=== PATIENT | female | born 1935 | race Caucasian/White ===

== ENCOUNTER 2017-01-22 14:19 | Emergency (ER) | payer MEDICAID, OTHER ==
[~2017-01-22] VITALS: Ht 154.9 cm; Wt 53.5 kg
[~2017-01-22 14:19] MED LIST: AMLO5TAB4 PO; ASPI81TA3 PO; DOCU-144 PO; GABA100C14 PO; LISI10TA2 PO; SPIR25TA PO; TRAM-40 PO
[2017-01-22 14:36] VITALS: Ht 154.9 cm; Wt 53.5 kg
[2017-01-22] MEDS ORDERED: PANT40TA4 PO (17:06)
[2017-01-22] MEDS ORDERED: CYAN-2 SL (17:08)
[2017-01-22 17:23] LABS: BASOPHIL # 0.1 10^3/ul (0.0-0.1); BASOPHILS % 1.7 % (0.0-2.0); EOSINOPHILS # 0.3 10^3/ul (0.0-0.5); EOSINOPHILS % 5.3 % (0.0-7.0); HEMATOCRIT 42.9 % (37.0-47.0); HEMOGLOBIN 14.5 g/dl (12.0-16.0); LYMPHOCYTES # 1.7 10^3/ul (0.8-2.9); LYMPHOCYTES % 28.8 % (15.0-51.0); MEAN CORPUSCULAR HEMOGLOBIN 28.4 pg (29.0-33.0); MEAN CORPUSCULAR HGB CONC 33.8 g/dl (32.0-37.0); MEAN PLATELET VOLUME 11.2 fl (7.4-10.4); MONOCYTE # 0.5 10^3/ul (0.3-0.9); MONOCYTES % 9.2 % (0.0-11.0); NEUTROPHILS % 54.7 % (39.0-77.0); PLATELET COUNT 261 10^3/UL (140-415); RED BLOOD COUNT 5.11 10^6/ul (4.20-5.40); RED CELL DISTRIBUTION WIDTH 13.7 % (11.5-14.5); WHITE BLOOD COUNT 5.9 10^3/ul (4.8-10.8)
[2017-01-22 18:16] LABS: ALBUMIN 4.2 g/dl (3.3-4.9); ALBUMIN/GLOBULIN RATIO 0.93; BILIRUBIN,INDIRECT 0.3 mg/dl (0-1.1); BILIRUBIN,TOTAL 0.3 mg/dl (0.2-1.3); CALCIUM 9.5 mg/dl (8.4-10.2); CREATININE 0.59 mg/dl (0.44-1.00); POTASSIUM 3.6 mmol/L (3.5-5.1); TOTAL PROTEIN 8.7 g/dl (6.1-8.1)
[2017-01-22 18:29] LABS: ADD UMIC YES; UR ASCORBIC ACID NEGATIVE (NEGATIVE); UR BILIRUBIN (Dip) NEGATIVE (NEGATIVE); UR BLOOD (Dip) NEGATIVE (NEGATIVE); UR CLARITY CLEAR (CLEAR); UR COLOR YELLOW (YELLOW); UR GLUCOSE (Dip) NEGATIVE (NEGATIVE); UR KETONES (Dip) NEGATIVE (NEGATIVE); UR LEUKOCYTE ESTERASE (Dip) 1+ Leu/ul (NEGATIVE); UR NITRITE (Dip) NEGATIVE (NEGATIVE); UR RBC 0 /HPF (0-5); UR SPECIFIC GRAVITY (Dip) 1.009 (1.003-1.030); UR TOTAL PROTEIN (Dip) NEGATIVE (NEGATIVE); UR UROBILINOGEN (Dip) NEGATIVE (NEGATIVE)
[2017-01-22] MEDS ORDERED: MAGN400O4 PO (18:51)
[2017-01-22] MEDS ORDERED: POLY17PO6 PO (18:51)
--- NOTE | 2017-01-22 18:51 | ERD ---
ER Documentation Chief Complaint Date/Time DATE: 01/22/17 TIME: 18:51 Chief Complaint ABD PAIN RADIATING TO LEGS, NO BM HPI 81-year-old female with a history of hypertension and gastric ulcer and gastritis presenting with generalized abdominal pain and constipation for several days. The pain is mild, nonradiating. She takes Dulcolax occasionally with no significant relief of her constipation. She denies any associated fever , chills, dysuria, nausea, vomiting. She is able to pass gas and small hard stool. She also complains of burning pain that radiates down bilateral legs into her feet. She has had this for quite some time. She has not talked to her primary care doctor about this. She denies any associated change in urinary habits or back pain. ROS All systems reviewed and are negative except as per history of present illness. Medications Home Meds Active Scripts Polyethylene Glycol* (Miralax*) 17 Gm Powd.pack, 17 GM PO DAILY, #30 PACKET Prov:LUCILA HILLIARD MD 01/22/17 Magnesium Hydroxide* (Milk Of Magnesia*) 400 Mg/5 Ml Oral.susp, 30 ML PO Q12H for CONSTIPATION, #240 ML Prov:LUCILA HILLIARD MD 01/22/17 Reported Medications Cyanocobalamin (Vitamin B-12) (B-12) 1,000 Mcg/1 Ml Drops, 1 ML SL [id number], BOTTLE 01/22/17 Pantoprazole* (Pantoprazole*) 40 Mg Tablet.dr, 40 MG PO AC BREAKFAST, TAB 01/22/17 Aspirin* (Aspirin* Chew) 81 Mg Tab.chew, 81 MG PO NEEDED, TAB.CHEW 04/17/16 Tramadol Hcl* (Ultram*) 50 Mg Tablet, 50 MG PO TID Y for PAIN, TAB 04/17/16 Gabapentin* (Gabapentin*) 100 Mg Capsule, 100 MG PO TID, #90 CAP 04/17/16 Docusate Sodium* (Colace*) 100 Mg Capsule, 100 MG PO BID, #60 CAP 04/17/16 Amlodipine Besylate* (Norvasc*) 5 Mg Tablet, 5 MG PO DAILY, TAB 04/17/16 Discontinued Scripts Spironolactone* (Aldactone*) 25 Mg Tablet, 25 MG PO DAILY, #30 TAB Prov:ISABEL LUX Kenzie [employer] 04/19/16 Lisinopril* (Lisinopril*) 10 Mg Tablet, 10 MG PO DAILY, #30 TAB Prov:ISABEL LUX VAdi [employer] 04/19/16 Allergies Allergies: Coded Allergies: acetaminophen (Verified Allergy, Mild, RASH, 01/22/17) Penicillins (Unverified Allergy, Unknown, 01/22/17) morphine (Verified Allergy, Unknown, Rash, 01/22/17) PMhx/Soc History of Surgery: Yes (Hysterectomy (over 2yrs ago), eyes (cataract - 40 yrs ago)) Anesthesia Reaction: No Hx Neurological Disorder: Yes Hx Respiratory Disorders: No Hx Cardiac Disorders: Yes Hx Psychiatric Problems: No Hx Miscellaneous Medical Probl: No Hx Alcohol Use: No Hx Substance Use: No Hx Tobacco Use: No Smoking Status: Never smoker FmHx Family History: No diabetes Physical Exam Vitals Vital Signs Date Time Temp Pulse Resp B/P Pulse Ox O2 Delivery O2 Flow Rate FiO2 01/22/17 19:00 99.2 78 18 157/72 97 Room Air 01/22/17 14:36 98.5 88 16 170/76 99 Physical Exam Const: Well-appearing, pleasant, no apparent distress Head: Atraumatic Eyes: Normal Conjunctiva ENT: Normal External Ears, Nose and Mouth. Neck: Full range of motion..~ No meningismus. Resp: Clear to auscultation bilaterally Cardio: Regular rate and rhythm, no murmurs Abd: Soft, non tender, non distended. No rebound or guarding. No masses.Normal bowel sounds Skin: No petechiae or rashes Back: No midline or flank tenderness Ext: No cyanosis, or edema Neur: Awake and alert Psych: Normal Mood and Affect Result Diagram: 01/22/17 1659 01/22/17 1740 Results 24 hrs Laboratory Tests Test 01/22/17 16:59 01/22/17 17:38 01/22/17 17:40 White Blood Count 5.910^3/ul Red Blood Count 5.1110^6/ul Hemoglobin 14.5g/dl Hematocrit 42.9% Mean Corpuscular Volume 84.0fl Mean Corpuscular Hemoglobin 28.4pg Mean Corpuscular Hemoglobin Concent 33.8g/dl Red Cell Distribution Width 13.7% Platelet Count 55167^3/UL Mean Platelet Volume 11.2fl Neutrophils % 54.7% Lymphocytes % 28.8% Monocytes % 9.2% Eosinophils % 5.3% Basophils % 1.7% Nucleated Red Blood Cells % 0.0/100WBC Neutrophils # (Manual) 3.210^3/ul Lymphocytes # 1.710^3/ul Monocytes # 0.510^3/ul Eosinophils # 0.310^3/ul Basophils # 0.110^3/ul Nucleated Red Blood Cells # 0.010^3/ul Urine Color YELLOW Urine Clarity CLEAR Urine pH 8.0 Urine Specific [place] 1.009 Urine Ketones NEGATIVEmg/dL Urine Nitrite NEGATIVEmg/dL Urine Bilirubin NEGATIVEmg/dL Urine Urobilinogen NEGATIVEmg/dL Urine Leukocyte Esterase 1+Brandan/ul Urine Microscopic RBC 0/HPF Urine Microscopic WBC 2/HPF Urine Hemoglobin NEGATIVEmg/dL Urine Glucose NEGATIVEmg/dL Urine Total Protein NEGATIVEmg/dl Sodium Level 146mmol/L Potassium Level 3.6mmol/L Chloride Level 100mmol/L Carbon Dioxide Level 30mmol/L Anion Gap 20 Blood Urea Nitrogen 10mg/dl Creatinine 0.59mg/dl Glucose Level 93mg/dl Calcium Level 9.5mg/dl Total Bilirubin 0.3mg/dl Direct Bilirubin 0.00mg/dl Indirect Bilirubin 0.3mg/dl Aspartate Amino Transf (AST/SGOT) 21IU/L Alanine Aminotransferase (ALT/SGPT) 23IU/L Alkaline Phosphatase 124IU/L Total Protein 8.7g/dl Albumin 4.2g/dl Globulin 4.50g/dl Albumin/Globulin Ratio 0.93 Lipase 133U/L Procedures/MDM Labs CBC: no anemia or evidence of infection CMP: No evidence of electrolyte abnormality, renal failure, hypoglycemia UA: no evidence of infection Patient is presenting with constipation and generalized abdominal discomfort. I have a low suspicion for abdominal aortic aneurysm, aortic dissection, or acute surgical abdomen. Patient's labs are within normal limits. There is no evidence of UTI. I have a low suspicion for cauda equina. I will prescribe her MiraLAX and milk of magnesia. Patient feels comfortable with this plan. Return precautions were discussed. She was advised to follow-up with her primary care doctor in the next 2 days. Departure Diagnosis: Primary Impression: Abdominal pain Abdominal location: generalized Qualified Code: R10.84 - Generalized abdominal pain Additional Impression: Constipated Constipation type: unspecified constipation type Qualified Code: K59.00 - Constipation, unspecified constipation type Condition: Stable Patient Instructions: Abdominal Pain, Constipation (Adult) LUCILA HILLIARD MD Jan 22, 2017 18:51
[2017-01-22 19:00] VITALS: BP 157/72; PULSE 78; RESP 18; TEMP 99.2
== END 2017-01-22 19:00 | disposition home or self-care (01) ==
LOC: E/R 14:19
DX: R10.84 Generalized abdominal pain (principal); K59.00 Constipation, unspecified; Z79.82 Long term (current) use of aspirin
CPT/HCPCS: 36415; 80053; 81001; 83690; 85025; Z7502; 99283

== ENCOUNTER 2018-03-14 11:15 | Day surgery (SDC) | END 2018-03-14 15:24 | disposition home or self-care (01) ==